=== PATIENT | male | born 1955 | race Caucasian/White ===

== ENCOUNTER → 2017-01-06 | Outpatient (CLI) | payer OTHER ==
--- NOTE | 2017-01-06 11:04 | REP ---
PET/CT: History: Weight loss, right middle lobe opacity. Comparisons: Chest CT September 30, 2016 this was read as showing a 1.1 centimeter right middle lobe opacity. Also reviewed are prior CT images from July 01, 2016. TECHNIQUE: 70 minutes following the intravenous injection of a 8.6 mCi dose of F-18 FDG, three-dimensional PET scintigraphy is acquired from the skull base to the proximal thighs. Triplanar noncontrast CT scanning is acquired through the same anatomic range for attenuation correction, and image registration with scan parameters optimized to minimize radiation exposure to the patient. PET scintigraphy and CT datasets were fused and displayed on a workstation with multiplanar and projection display capability. PET/CT Findings: There is no abnormal hypermetabolic uptake within the chest cavity. On accompanying CT study, the recently noted right middle lobe opacity has resolved. No abnormal parenchymal uptake is seen in this region. This must have been inflammatory or atelectatic. Emphysematous changes are again noted. The head and neck soft tissues are unremarkable. In the abdomen and pelvis, normal at the GE distribution is seen. Normal at no abnormal uptake lesion is seen. Impression: Negative PET CT study. Recently noted right middle lobe pulmonary parenchymal opacity has resolved and there is no abnormal EEG accumulation. Signed by Clyde Snow MD 01/06/2017 10:56 A
== END ==
LOC: M RAD 07:47
PROVIDERS: ATTEND Family Medicine
DX: R91.8 Other nonspecific abnormal finding of lung field (principal); R63.4 Abnormal weight loss